=== PATIENT | female | born 1935 | race Caucasian/White ===

== ENCOUNTER 2016-11-08 10:41 | Inpatient (IN) | payer OTHER ==
[~2016-11-08] VITALS: Ht 162.6 cm; Wt 66.2 kg
--- NOTE | ~2016-11-08 | HC ---
[facility] [place] [address] CONSULTATION Name: STEVE FRANK Room #: 427-P [facility] IN M.R.#: [id number] Admission: 11/08/16 Attend Phys: Kelechi Rausch DO Discharge: Date of : 31 Report #: [id number] THIS REPORT FOR: //name// CC: Kenton Rausch DATE OF SERVICE: 11/08/2016 HISTORY OF PRESENT ILLNESS: I have been asked to evaluate this pleasant 81-year-old lady who presented to Emergency Room with chief complaint of worsening rectal pain and abdominal pain. She states that she has had chronic constipation for many years, underwent a probable sigmoid colon resection 40 years ago for presented polyp, which included some invasive cancer. She describes her new onset of pain, worsening in the last one month. The pain is sharp and intense, associated with an attempt to have a stool. She experienced some blood with the bowel movement yesterday and has been having some worsening lower abdominal pain. She has a lengthy history of stooling on every 3-7 day period of time and she does have progressive abdominal distention. PAST MEDICAL HISTORY: Consistent with hypercholesterolemia, hypertension and colon cancer. PAST SURGICAL HISTORY: Cholecystectomy, colon resection, hysterectomy and cataract surgery. MEDICATIONS: Multiple: Lisinopril, Norvasc, vitamin B12, CoQ-10, vitamin D2, 81 mg aspirin daily, diclofenac, glucosamine, omega 3 and simvastatin. ALLERGIES: No known drug allergies. SOCIAL HISTORY: , is retired dentist. She denies tobacco use and does not use alcohol. REVIEW OF SYSTEMS: Her 10-point review of systems is essentially noncontributory except for the worsening constipation in recent days. PHYSICAL EXAMINATION: GENERAL: Reveals a lady resting comfortably in bed. She is afebrile. VITAL SIGNS: Stable. HEENT: Pupils equal, round and react to light. Extraocular movements normal limits. NECK: Supple. No adenopathy. LUNGS: Clear at the bases bilaterally. CARDIOVASCULAR: Regular rate and rhythm. ABDOMEN: Mild distention, marked tenderness in the left lower quadrant. No palpable mass is present. [facility] [address] [place] [address] CONSULTATION Name: STEVE FRANK Room #: 427-P [facility] IN M.R.#: [id number] Admission: 11/08/16 Attend Phys: Kelechi Rausch DO Discharge: Date of : 31 Report #: [id number] RECTAL: Not performed. NEUROLOGICAL: She is oriented x 3, bilateral motor symmetry. DIAGNOSTIC DATA: Review of the patient's laboratory and CT scan demonstrates stool throughout the colon with some degree of obstipation. There is some thickening of the sigmoid colon. DIAGNOSTIC IMPRESSION AND PLAN: Possible recurrent diverticulitis, must consider the possibility of colitis on an ischemic basis and there is thickening could also be in the region of the previous colon resection. I would recommend proceeding with a gastrointestinal consultation and consideration of flexible sigmoidoscopy. Thank you for allowing us to participate in her care and we will follow her with you. <ELECTRONICALLY SIGNED> By: Thony Estrella MD, FACS 11/12/16 [id number] Thony Estrella MD, FACS /nt
--- NOTE | ~2016-11-08 | S ---
[facility] [place] [address] SURGICAL PATH RPT PROCEDURE Name: STEVE FRANK Room #: 427-P DIS IN M.R.#: [id number] Admission: 11/08/16 Date of : 31 Discharge: 11/12/16 Report #: [id number] Path Case #: [id number] PATHOLOGY REPORT COLLECTION DATE: 11/12/2016 RECEIVED DATE: 11/12/2016 SUBMITTING PHYS: Dr. Jan Montero OTHER PHYS: Dr. Kelechi Bazzi SPECIMEN(S) RECEIVED: A.Sigmoid colon * * * * * * * * * * * * FINAL DIAGNOSIS: "Sigmoid colon," biopsy: - Colonic mucosa with mild reactive changes including minimal lamina propria early fibrosis and focal active colitis; no dysplasia seen. (see comment) COMMENT: Focal active colitis can be seen in resolving infectious type colitis, incidentally with bowel preparation, and quiescent chronic idiopathic inflammatory bowel disease. No increased chronic inflammation or chronic architectural changes are identified. The minimal lamina propria early fibrosis is non-specific and can be seen in previous anastomosis sites as well as other inflammatory conditions. The histologic findings are not classic for ischemic colitis; however, early ischemia is not entirely excluded. Clinical and endoscopic correlation is required. (CLW:; 11/14/2016) PATHOLOGIST: Tia Patton M.D. REPORT ELECTRONICALLY SIGNED BY: Tia Patton M.D. DATE/TIME: 11/14/2016 20:49 * * * * * * * * * * * * GROSS PATHOLOGY: Received in formalin labeled "Steve Frank, sigmoid r/o ischemia," is a segment of kelley soft tissue measuring 0.4 cm in maximum dimension. The specimen is submitted entirely in cassette A1. (TSD; 11/13/2016) CLINICAL HISTORY: c/o Rectal pain, colitis on imaging, constipation [facility] [address] [address] SURGICAL PATH RPT PROCEDURE Name: STEVE FRANK Room #: 427-P DIS IN M.R.#: [id number] Admission: 11/08/16 Date of : 31 Discharge: 11/12/16 Report #: [id number] Path Case #: [id number] INITIAL CPT CODE(S): A; 46571 Professional services performed by [facility] at [address] , [place] [address] Technical services performed by [facility] at [address] [place] [address], [facility] [address] [address]. [facility] [address] [place] [address] PHONE: [phone] DIRECTOR: Valeriy Kelley M.D. * * * END OF REPORT * * *
[~2016-11-08 10:41] MED LIST: ASPIRIN81 M2 PO; COLACE100 MG PO; DICLOFENAC SODI75 M1 PO; FISH OIL 1,0001 EAC5 PO; GLUCOPHAGE500 MG PO; GLUCOSAMINE HC500 MG PO; LISINOPRIL10 MG PO; NORCO 5-325 TA1 EACH PO; NORVASC 5 MG TAB5 MG PO; PAIN & FEVER325 MG PO; PROTONIX 20 MG20 MG PO; SIMVASTATIN20 MG PO; VITAMIN D22000 UNIT PO
[2016-11-08 10:45] VITALS: BP 171/68
[2016-11-08 11:12] LABS: URINE BILIRUBIN NEGATIVE (Negative); URINE BLOOD TRACE (Negative); URINE COLOR YELLOW; URINE GLUCOSE-RANDOM* NEGATIVE (Negative); URINE KETONES NEGATIVE (Negative); URINE NITRITE NEGATIVE (Negative); URINE PROTEIN (DIPSTICK) NEGATIVE (Negative); URINE UROBILINOGEN 0.2 E.U./dl (0.2-1.0)
[2016-11-08] MEDS ORDERED: VITAMIN B-12500 MCG PO (11:23)
[2016-11-08] MEDS ORDERED: CO Q-10100 MG PO (11:24)
[2016-11-08 11:30] LABS: ABSOLUTE NEUTROPHILS 9.4 thou/uL (1.4-8.2); BASOPHILS 0.7 % (0.0-2.0); EOSINOPHILS 1.1 % (0.0-3.0); HEMATOCRIT 39.1 % (37.0-47.0); HEMOGLOBIN 12.8 gm/dL (12.0-15.0); LYMPHOCYTES 9.6 % (24.0-44.0); MCH 30.4 pg (26.0-34.0); MCHC 32.8 g/dL (28.0-37.0); MCV 92.7 fL (80.0-100.0); MONOCYTES 6.4 % (1.0-8.0); PLATELET COUNT 179 thou/uL (150-400); POLYS 82.2 % (36.0-66.0); RBC 4.22 mil/uL (4.20-5.00); RDW 13.9 % (10.5-14.5); WBC 11.4 thou/uL (4.0-11.0)
[2016-11-08 11:31] LABS: MANUAL DIFF NO
[2016-11-08 11:39] LABS: CALCIUM 10.1 mg/dL (8.5-10.1); CREATININE 0.8 mg/dL (0.6-1.0)
[2016-11-08 11:45] LABS: ALBUMIN 3.6 g/dL (3.4-5.0); DIRECT BILIRUBIN 0.2 mg/dL (<0.1-0.3); TOTAL BILIRUBIN 0.9 mg/dL (<0.1-1.0); TOTAL PROTEIN 6.8 g/dL (6.4-8.2)
[2016-11-08 13:06] VITALS: BP 134/59
[2016-11-08 17:01] VITALS: BP 145/60
[2016-11-08 19:31] VITALS: BP 150/67
[2016-11-09 03:59] VITALS: BP 127/67; BP 145/80
[2016-11-09 04:41] LABS: ABSOLUTE NEUTROPHILS 4.7 thou/uL (1.4-8.2); BASOPHILS 0.5 % (0.0-2.0); CALCIUM 9.7 mg/dL (8.5-10.1); CREATININE 0.7 mg/dL (0.6-1.0); EOSINOPHILS 4.7 % (0.0-3.0); HEMATOCRIT 33.9 % (37.0-47.0); HEMOGLOBIN 11.4 gm/dL (12.0-15.0); LYMPHOCYTES 18.4 % (24.0-44.0); MCH 31.4 pg (26.0-34.0); MCHC 33.8 g/dL (28.0-37.0); PLATELET COUNT 149 thou/uL (150-400); POLYS 66.4 % (36.0-66.0); POTASSIUM 3.8 mmol/L (3.5-5.1); RBC 3.64 mil/uL (4.20-5.00)
[2016-11-09 05:15] LABS: MANUAL DIFF NO
[2016-11-09 08:00] VITALS: BP 146/72
[2016-11-09 16:00] VITALS: BP 155/67
[2016-11-09 20:00] VITALS: BP 176/69
[2016-11-10 04:00] VITALS: BP 150/63
[2016-11-10 06:12] LABS: BASOPHILS 0.9 % (0.0-2.0); EOSINOPHILS 7.5 % (0.0-3.0); HEMATOCRIT 33.7 % (37.0-47.0); HEMOGLOBIN 11.6 gm/dL (12.0-15.0); LYMPHOCYTES 24.9 % (24.0-44.0); MCH 31.7 pg (26.0-34.0); MCHC 34.5 g/dL (28.0-37.0); MCV 91.9 fL (80.0-100.0); MONOCYTES 9.1 % (1.0-8.0); PLATELET COUNT 164 thou/uL (150-400); POLYS 57.6 % (36.0-66.0); RBC 3.66 mil/uL (4.20-5.00); RDW 14.2 % (10.5-14.5); WBC 5.2 thou/uL (4.0-11.0)
[2016-11-10 06:13] LABS: MANUAL DIFF NO
[2016-11-10 06:26] LABS: CALCIUM 9.6 mg/dL (8.5-10.1); CREATININE 0.6 mg/dL (0.6-1.0); POTASSIUM 3.8 mmol/L (3.5-5.1)
[2016-11-10 07:50] VITALS: BP 153/67
[2016-11-10 15:48] VITALS: BP 153/67
[2016-11-10 19:53] VITALS: BP 177/85
[2016-11-11 03:53] VITALS: BP 147/76
[2016-11-11 08:40] VITALS: BP 154/69
[2016-11-11 20:00] VITALS: BP 178/92
[2016-11-12 04:00] VITALS: BP 162/74
[2016-11-12 08:33] VITALS: BP 176/66
[2016-11-12] MEDS ORDERED: FLAGYL500 MG PO (11:13)
[2016-11-12] MEDS ORDERED: CIPRO500 MG PO (11:13)
[2016-11-12 12:37] VITALS: BP 176/66
[2016-11-12] MEDS ORDERED: MIRALAX17 GM PO (13:20)
== END 2016-11-12 14:17 | disposition home or self-care (01) | DRG 394 ==
LOC: ER 10:41 → EROBS 13:00 → 4E 13:00 → ENTRNSPT 11-12 13:43 → EDTRNSPTSTS 11-12 14:08 → 4E 11-12 14:17
PROVIDERS: Emergency Medicine; Family Medicine
PROC: 0DBN8ZX Excision of Sigmoid Colon, Via Natural or Artificial Opening Endoscopic, Diagnostic (ICD-10-PCS; principal; 2016-11-12)
DX: K63.3 Ulcer of intestine (principal); K92.1 Melena; E78.00 Pure hypercholesterolemia, unspecified; I10 Essential (primary) hypertension; K52.9 Noninfective gastroenteritis and colitis, unspecified; K57.90 Diverticulosis of intestine, part unspecified, without perforation or abscess without bleeding; K59.00 Constipation, unspecified; K64.8 Other hemorrhoids; Z85.038 Personal history of other malignant neoplasm of large intestine; Z90.49 Acquired absence of other specified parts of digestive tract; Z90.710 Acquired absence of both cervix and uterus; Z98.49 Cataract extraction status, unspecified eye; Z79.899 Other long term (current) drug therapy
CPT/HCPCS: 10084; 62110; 62900; 70005